=== PATIENT | male | born 1955 | race Caucasian/White ===

== ENCOUNTER 2019-06-01 10:49 | Emergency (ER) | payer MEDICARE, OTHER ==
[~2019-06-01] VITALS: Ht 177.8 cm; Wt 75.8 kg
[2019-06-01] MEDS ORDERED: PROMETHAZINE-CODEINE (11:04)
[2019-06-01] MEDS ORDERED: Fluocinonide60 ML (11:04)
[2019-06-01] MEDS ORDERED: ALBU3IS (11:05)
[2019-06-01] MEDS ORDERED: Flagyl500 MG PO (13:48)
[2019-06-01] MEDS ORDERED: Cipro500 MG PO (13:48)
== END 2019-06-01 14:07 | disposition home or self-care (01) ==
LOC: ER 10:49
DX: K52.9 Noninfective gastroenteritis and colitis, unspecified (principal); I95.1 Orthostatic hypotension; K62.5 Hemorrhage of anus and rectum; Z88.5 Allergy status to narcotic agent
CPT/HCPCS: 74177; 82272; 93005; 93010; 96360-59; 99285-25; J7030; Q9967

== ENCOUNTER → 2019-06-01 | Outpatient (CLI) | payer MEDICARE, OTHER ==
[~2019-06-01] MED LIST: ALBU3IS; Cipro500 MG PO; Flagyl500 MG PO; Fluocinonide60 ML; PROMETHAZINE-CODEINE
[2019-06-01 09:50] LABS: BASOPHILS ABSOLUTE AUTO 0.03 K/mm3 (0.00-0.23); BASOPHILS PERCENT AUTO 1 % (0-2); EOSINOPHILS ABSOLUTE AUTO 0.04 K/mm3 (0.00-0.68); EOSINOPHILS PERCENT AUTO 1 % (0-6); Hematocrit 39.6 % (37.0-53.0); Hemoglobin 14.3 g/dL (13.5-17.5); IMMATURE GRAN ABSOLUTE AUTO 0.02 K/mm3 (0.00-0.10); IMMATURE GRAN PERCENT AUTO 0 % (0-1); LYMPHOCYTES PERCENT AUTO 19 % (21-46); MONOCYTES ABSOLUTE AUTO 0.51 K/mm3 (0.16-1.47); MONOCYTES PERCENT AUTO 11 % (4-13); Mean Corpuscular HGB 31.3 pg (26.0-34.0); Mean Corpuscular HGB Conc 36.1 g/dL (31.5-36.5); Mean Corpuscular Volume 87 fL (80-100); Mean Platelet Volume 9.6 fL (9.1-12.4); NEUTROPHILS ABSOLUTE AUTO 3.24 K/mm3 (1.96-9.15); NEUTROPHILS PERCENT AUTO 68 % (41-73); Platelet Count 165 K/mm3 (150-400); RDW Coefficient Variation 12.9 % (11.7-14.2); Red Blood Cell Count 4.57 M/mm3 (4.30-5.90); White Blood Cell Count 4.74 K/mm3 (4.00-11.30)
[2019-06-01 09:59] LABS: Alanine Aminotransfer (ALT/SGP 28 U/L (12-78); Albumin, Blood 3.8 g/dL (3.4-5.0); Albumin/Globulin Ratio 1.2 (0.8-1.8); Alk Phos 64 U/L (40-126); Anion Gap 11 mmol/L (6-16); Aspartate Aminotrans (AST/SGOT 30 U/L (12-37); Bilirubin, Total 0.6 mg/dL (0.1-1.0); Blood Urea Nitrogen 12 mg/dL (8-24); Bun/Creatinine Ratio 12.8 (12.0-20.0); CO2, Blood 27 mmol/L (21-32); Calcium, Blood 8.5 mg/dL (8.5-10.1); Chloride, Blood 102 mmol/L (98-108); Creatinine, Blood 0.94 mg/dL (0.60-1.20); Globulin, Blood 3.3 g/dL (2.2-4.0); Glomerular Filtration Rate >60 (60-); Glucose, Blood 141 mg/dL (70-99); Potassium, Blood 3.8 mmol/L (3.5-5.5); Sodium, Blood 140 mmol/L (136-145); Total Protein, Blood 7.1 g/dL (6.4-8.2)
== END | disposition home or self-care (01) ==
LOC: LAB SHORT 09:42 → LAB EV 09:42
PROVIDERS: General Practice
DX: K62.5 Hemorrhage of anus and rectum (principal)
CPT/HCPCS: 80053; 85025; 87081

== ENCOUNTER → 2021-02-23 | Outpatient (CLI) | payer MEDICARE, OTHER ==
[2021-02-23 12:14] LABS: BASOPHILS PERCENT AUTO 0 % (0-2); EOSINOPHILS PERCENT AUTO 0 % (0-6); Hematocrit 40.1 % (37.0-53.0); Hemoglobin 14.3 g/dL (13.5-17.5); IMMATURE GRAN ABSOLUTE AUTO 0.01 K/mm3 (0.00-0.10); IMMATURE GRAN PERCENT AUTO 0 % (0-1); LYMPHOCYTES ABSOLUTE AUTO 0.68 K/mm3 (0.84-5.20); LYMPHOCYTES PERCENT AUTO 22 % (21-46); MONOCYTES ABSOLUTE AUTO 0.28 K/mm3 (0.16-1.47); MONOCYTES PERCENT AUTO 9 % (4-13); Mean Corpuscular HGB Conc 35.7 g/dL (31.5-36.5); Mean Corpuscular Volume 87 fL (80-100); NEUTROPHILS ABSOLUTE AUTO 2.16 K/mm3 (1.96-9.15); NEUTROPHILS PERCENT AUTO 69 % (41-73); RDW Coefficient Variation 13.1 % (11.7-14.2); Red Blood Cell Count 4.61 M/mm3 (4.30-5.90); White Blood Cell Count 3.13 K/mm3 (4.00-11.30)
[2021-02-23 12:24] LABS: Alanine Aminotransfer (ALT/SGP 17 U/L (12-78); Albumin, Blood 3.9 g/dL (3.4-5.0); Alk Phos 54 U/L (40-126); Anion Gap 6 mmol/L (6-16); Aspartate Aminotrans (AST/SGOT 30 U/L (12-37); Bilirubin, Total 0.6 mg/dL (0.1-1.0); Blood Urea Nitrogen 13 mg/dL (8-24); Bun/Creatinine Ratio 13.4 (12.0-20.0); CO2, Blood 32 mmol/L (21-32); Calcium, Blood 8.4 mg/dL (8.5-10.1); Chloride, Blood 99 mmol/L (98-108); Creatinine, Blood 0.97 mg/dL (0.60-1.20); Globulin, Blood 4.1 g/dL (2.2-4.0); Glomerular Filtration Rate >60 (60-); Glucose, Blood 97 mg/dL (70-99); Potassium, Blood 3.9 mmol/L (3.5-5.5); Sodium, Blood 137 mmol/L (136-145)
[2021-02-23 12:40] LABS: Mean Platelet Volume 10.2 fL (9.1-12.4); Platelet Count 112 K/mm3 (150-400)
== END | disposition home or self-care (01) ==
LOC: LAB 12:09 → LAB SHORT 12:09
PROVIDERS: Physician Assistant Surgical
DX: U07.1 COVID-19 (principal)
CPT/HCPCS: 80053; 85025; 85379

== ENCOUNTER → 2021-10-14 | Outpatient (CLI) | payer MEDICARE, OTHER | END | disposition home or self-care (01) | LOC: LAB SHORT 17:06 → LAB 17:06 | DX: Z48.817 Encounter for surgical aftercare following surgery on the skin and subcutaneous tissue (principal); L08.9 Local infection of the skin and subcutaneous tissue, unspecified | CPT/HCPCS: 87070; 87077; 87186; 87205 ==

== ENCOUNTER → 2022-08-25 | Outpatient (CLI) | payer MEDICARE, OTHER | END | disposition home or self-care (01) | LOC: LAB SHORT 16:08 → LAB 16:08 | DX: L08.9 Local infection of the skin and subcutaneous tissue, unspecified (principal) | CPT/HCPCS: 87070; 87205 ==

== ENCOUNTER 2022-09-06 09:08 | Day surgery (SDC) | payer MEDICARE, OTHER ==
[2022-09-06] MEDS ORDERED: Lisinopril2.5 MG PO (09:39)
--- NOTE | 2022-09-06 10:51 | NUR ---
09/06/22 1051 Vanna Nunez 10CC OF EPI 1:1000 [facility]
--- NOTE | 2022-09-06 11:18 | NUR ---
09/06/22 1118 TROY MCNALLY O2 DECREASED FROM 6L TO 3L- TRIAL
--- NOTE | 2022-09-06 11:51 | NUR ---
09/06/22 1151 Shamar Brady PT VITAL AND SATS STABLE/ NO COMPLAINT OF PAIN. PT VOICED READINESS TO GO HOME/ TCR RN
== END 2022-09-06 11:52 | disposition home or self-care (01) ==
LOC: ORSCSDS 09:08
PROVIDERS: Otolaryngology
PROC: 0CBM8ZX Excision of Pharynx, Via Natural or Artificial Opening Endoscopic, Diagnostic (ICD-10-PCS; principal; 2022-09-06 10:30)
DX: R13.14 Dysphagia, pharyngoesophageal phase (principal); Z85.21 Personal history of malignant neoplasm of larynx; D37.05 Neoplasm of uncertain behavior of pharynx; Z87.891 Personal history of nicotine dependence; I10 Essential (primary) hypertension; Z79.899 Other long term (current) drug therapy
CPT/HCPCS: J0171; J1100; J2250; J2370; J2405; J2704; J3010

== ENCOUNTER 2024-04-12 10:16 | Emergency (ER) | payer MEDICARE, OTHER ==
[~2024-04-12] VITALS: Ht 177.8 cm; Wt 72.6 kg
[~2024-04-12 10:16] MED LIST changes: +Lisinopril2.5 MG PO
[2024-04-12 10:54] VITALS: BP 124/80
[2024-04-12] MEDS ORDERED: Norco 5-325 Ta1 EACH PO (12:35)
== END 2024-04-12 13:30 | disposition home or self-care (01) ==
LOC: ER 10:16
DX: S01.81XA Laceration without foreign body of other part of head, initial encounter (principal); S41.111A Laceration without foreign body of right upper arm, initial encounter; S50.01XA Contusion of right elbow, initial encounter; Z88.5 Allergy status to narcotic agent; Z79.899 Other long term (current) drug therapy; Z87.891 Personal history of nicotine dependence; W10.9XXA Fall (on) (from) unspecified stairs and steps, initial encounter
CPT/HCPCS: 70450; 72125; 73060; 73090; 99284-25

== ENCOUNTER 2024-05-01 22:34 | Emergency (ER) | payer MEDICARE, OTHER ==
[~2024-05-01] VITALS: Ht 182.9 cm; Wt 81.7 kg
[~2024-05-01 22:34] MED LIST changes: +Norco 5-325 Ta1 EACH PO
[2024-05-02] MEDS ORDERED: Ondansetron HCl 2 MG / ML 2ML Vial IV PRN (00:10)
[2024-05-02 00:12] LABS: BASOPHILS ABSOLUTE AUTO 0.04 K/mm3 (0.00-0.23); BASOPHILS PERCENT AUTO 0 % (0-2); EOSINOPHILS ABSOLUTE AUTO 0.35 K/mm3 (0.00-0.68); EOSINOPHILS PERCENT AUTO 3 % (0-6); Hematocrit 39.6 % (37.0-53.0); Hemoglobin 13.9 g/dL (13.5-17.5); IMMATURE GRAN ABSOLUTE AUTO 0.07 K/mm3 (0.00-0.10); IMMATURE GRAN PERCENT AUTO 1 % (0-1); LYMPHOCYTES ABSOLUTE AUTO 1.22 K/mm3 (0.84-5.20); LYMPHOCYTES PERCENT AUTO 12 % (21-46); MONOCYTES ABSOLUTE AUTO 0.83 K/mm3 (0.16-1.47); MONOCYTES PERCENT AUTO 8 % (4-13); Mean Corpuscular HGB Conc 35.1 g/dL (31.5-36.5); Mean Corpuscular Volume 91 fL (80-100); Mean Platelet Volume 9.4 fL (9.1-12.4); NEUTROPHILS ABSOLUTE AUTO 7.74 K/mm3 (1.96-9.15); NEUTROPHILS PERCENT AUTO 76 % (41-73); Platelet Count 186 K/mm3 (150-400); RDW Coefficient Variation 13.2 % (11.7-14.2); RDW Standard Deviation 42.9 fL (35.1-46.3); Red Blood Cell Count 4.35 M/mm3 (4.30-5.90); White Blood Cell Count 10.25 K/mm3 (4.00-11.30)
[2024-05-02 00:26] LABS: Albumin, Blood 3.6 g/dL (3.4-5.0); Bilirubin, Total 0.5 mg/dL (0.1-1.0); Calcium, Blood 8.7 mg/dL (8.5-10.1); Creatinine, Blood 0.76 mg/dL (0.60-1.20); Globulin, Blood 3.6 g/dL (2.2-4.0); Potassium, Blood 3.8 mmol/L (3.5-5.5); Total Protein, Blood 7.2 g/dL (6.4-8.2)
[2024-05-02] MEDS ORDERED: Ketorolac Tromethamine 30mg Vial IV ONE (02:10)
[2024-05-02] MEDS ORDERED: Ipratropium/Albuterol SulF 2.5-0.5MG/3 ML Amp INH ONE (02:10)
[2024-05-02 03:45] VITALS: BP 104/59
== END 2024-05-02 04:22 | disposition home or self-care (01) ==
LOC: ER 22:34
PROVIDERS: Emergency Medicine
DX: J44.1 Chronic obstructive pulmonary disease with (acute) exacerbation (principal); R07.89 Other chest pain; Z87.891 Personal history of nicotine dependence; Z79.899 Other long term (current) drug therapy; Z88.8 Allergy status to other drugs, medicaments and biological substances
CPT/HCPCS: 71046; 80053; 83690; 84484; 85025; 85379; 93005; 93010; 94640; 94664; J1885

== ENCOUNTER 2025-05-21 13:49 | Emergency (ER) | payer MEDICARE, OTHER ==
[~2025-05-21] VITALS: Ht 177.8 cm; Wt 72.6 kg
[2025-05-21 18:11] VITALS: BP 160/87
== END 2025-05-21 18:34 | disposition home or self-care (01) ==
LOC: ER 13:49
DX: S51.812A Laceration without foreign body of left forearm, initial encounter (principal); W29.8XXA Contact with other powered hand tools and household machinery, initial encounter; Z88.5 Allergy status to narcotic agent; Z79.899 Other long term (current) drug therapy; Z87.891 Personal history of nicotine dependence
CPT/HCPCS: 12002; 73090; 90471; 90715; 99283-25; A9270